=== PATIENT | female | born 1970 | race Two or more races ===

== ENCOUNTER 2024-06-17 18:36 | Inpatient (IN) | payer MEDICAID ==
[~2024-06-17] VITALS: Ht 175.3 cm; Wt 80.7 kg
[2024-06-17 22:59] LABS: CHLORIDE 110 mEq/L (98-107); POTASSIUM 4.2 mEq/L (3.5-5.1); SODIUM 139 mEq/L (136-145)
[2024-06-17 23:00] LABS: CARBON DIOXIDE 24 mEq/L (21-32); DIFFERENTIAL COMMENT 1; HEMATOCRIT. 26.4 % (36.0-48.0); HEMOGLOBIN. 8.3 g/dL (12.0-16.0); MEAN CORPUSCULAR HEMOGLOBIN 24.8 pg (28.0-32.0); MEAN CORPUSCULAR HGB CONC 31.6 g/dL (31.0-37.0); MEAN CORPUSCULAR VOLUME 78.6 fL (81.0-99.0); MEAN PLATELET VOLUME 9.1 fl (7.4-10.4); PLATELET 329 x1000/uL (130-400); RED BLOOD CELL COUNT 3.36 mill/uL (4.2-5.4); RED CELL DISTRIBUTION WIDTH 20.1 % (11.6-14.6); WHITE BLOOD COUNT 10.3 x1000/uL (4.5-11.0)
[2024-06-17 23:05] LABS: CREATININE 0.8 mg/dL (0.6-1.0); GLUCOSE 98 mg/dL (70-105); UREA NITROGEN BLOOD 19 mg/dL (9-23)
[2024-06-17 23:07] LABS: ALANINE AMINOTRANSFERASE 15 IU/L (10-49); ALBUMIN 4.2 g/dL (3.2-4.8); ASPARTATE AMINOTRANSFERASE 23 IU/L (<34)
[2024-06-17 23:08] LABS: BILIRUBIN TOTAL 0.2 mg/dL (0.1-1.0); PROTEIN TOTAL 7.5 g/dL (6.0-8.3)
[2024-06-17 23:22] LABS: ANISOCYTOSIS 1+; HYPOCHROMASIA 1+; MICROCYTOSIS 1+; PLATELET ESTIMATE NORMAL
[2024-06-17] MEDS: KETOROLAC 30MG/ML VIAL IM ONE (23:30)
[2024-06-18] MEDS: SODIUM CHLORIDE 0.9% 500 ML IV ONE (02:39)
[2024-06-18] MEDS: CEFTRIAXONE 1GM/50ML 50 ML IV ONE (02:39)
[2024-06-18] MEDS ORDERED: LORAZEPAM 2MG/ML INJ IV NR (02:45)
[2024-06-18] MEDS: METRONIDAZOLE 500 MG PREMIX 100 ML IV ONE (03:08)
[2024-06-18] MEDS ORDERED: ACETAMINOPHEN 650MG SUPP PR PRN (03:30)
[2024-06-18 04:34] VITALS: BP 146/77; PULSE 74; RESP 18; TEMP 35.8064
[2024-06-18] MEDS ORDERED: CLONIDINE 0.1MG TABLET PO PRN (06:30)
[2024-06-18] MEDS ORDERED: ONDANSETRON HCL 4MG TABLET PO PRN (06:30)
[2024-06-18 08:00] VITALS: BP 121/56; PULSE 72; RESP 20; TEMP 36.89184; O2SAT 98
[2024-06-18] MEDS ORDERED: KETOROLAC 15MG/ML VIAL IV PRN ×2 (08:30→08:45)
[2024-06-18] MEDS ORDERED: GUAIFENESIN 200MG 200 MG TABLET PO PRN (08:45)
[2024-06-18] MEDS ORDERED: IPRATROPIUM/ALBUTEROL 0.5-3(2.5)MG/3ML NEB HHN PRN (08:45)
[2024-06-18] MEDS ORDERED: DEXTROSE 50% WATER 50ML SYRINGE IV PRN (08:45)
[2024-06-18 09:26] LABS: IRON 21 ug/dL (50-170)
[2024-06-18 09:28] LABS: PHOSPHORUS 4.1 mg/dL (2.5-4.9)
[2024-06-18 09:29] LABS: TOTAL IRON BINDING CAPACITY 365 ug/dl (250-425)
[2024-06-18 09:33] LABS: FERRITIN 8 ng/mL (10-291)
[2024-06-18 09:34] LABS: VITAMIN B12 SERUM 378 pg/mL (211-911)
[2024-06-18 12:00] VITALS: BP 131/54; PULSE 77; RESP 20; TEMP 37.11408; O2SAT 99
[2024-06-18] MEDS: BLOOD SUGAR DIAGNOSTIC STRIP TEST SCH (12:20)
[2024-06-18 16:00] VITALS: BP 126/57; PULSE 74; RESP 20; TEMP 36.72516; O2SAT 99
[2024-06-18 20:00] VITALS: BP 143/67; PULSE 90; RESP 20; TEMP 35.72508; O2SAT 96
[2024-06-18] MEDS: IRON SUCROSE COMPLEX 100 MG/5 ML ML IV SCH (20:00)
[2024-06-18] MEDS: PANTOPRAZOLE SODIUM 40 MG/VIAL IV SCH (21:00)
[2024-06-18 22:12] LABS: INR 0.9; PARTIAL THROMBOPLASTIN TIME 26.6 sec (23.4-31.0); PROTHROMBIN TIME 10.6 sec (9.6-11.0)
[2024-06-18] MEDS: MAGNESIUM 2 G PREMIX 50 ML IV NR (22:25)
[2024-06-19] VITALS: BP 118/63; PULSE 76; RESP 20; TEMP 36.78072; O2SAT 95
[2024-06-19 04:00] VITALS: BP 103/58; PULSE 65; RESP 20; TEMP 36.6696; O2SAT 98
[2024-06-19 06:49] LABS: CARBON DIOXIDE 24 mEq/L (21-32); CHLORIDE 109 mEq/L (98-107); POTASSIUM 4.2 mEq/L (3.5-5.1); SODIUM 140 mEq/L (136-145)
[2024-06-19 06:50] LABS: CALCIUM 8.6 mg/dL (8.7-10.4)
[2024-06-19 06:55] LABS: CREATININE 0.7 mg/dL (0.6-1.0); GLUCOSE 83 mg/dL (70-105); TRIGLYCERIDE 155 mg/dL (0-150)
[2024-06-19 06:56] LABS: LDL CHOLESTEROL 76 mg/dL (5-100); T4 FREE 0.61 ng/dL (0.89-1.76); UREA NITROGEN BLOOD 11 mg/dL (9-23)
[2024-06-19 06:57] LABS: CHOLESTEROL 139 mg/dL (<200); HDL CHOLESTEROL 36 mg/dL (>65); THYROID STIMULATING HORMONE 0.95 uIU/mL (0.55-4.78)
[2024-06-19 07:40] LABS: BASOPHILS % 1.7 % (0.0-2.0); DIFFERENTIAL COMMENT 0; EOSINOPHILS % 13.5 % (0.0-5.0); HEMATOCRIT. 25.3 % (36.0-48.0); HEMOGLOBIN. 8.1 g/dL (12.0-16.0); LYMPHOCYTES % 21.1 % (20.0-50.0); MEAN CORPUSCULAR HEMOGLOBIN 24.8 pg (28.0-32.0); MEAN CORPUSCULAR VOLUME 77.4 fL (81.0-99.0); MEAN PLATELET VOLUME 9.1 fl (7.4-10.4); MONOCYTES % 7.7 % (2.0-8.0); PLATELET 335 x1000/uL (130-400); RED BLOOD CELL COUNT 3.27 mill/uL (4.2-5.4); RED CELL DISTRIBUTION WIDTH 20.2 % (11.6-14.6); WHITE BLOOD COUNT 6.9 x1000/uL (4.5-11.0)
[2024-06-19 08:00] VITALS: BP 139/60; PULSE 81; RESP 18; TEMP 37.00296; O2SAT 100
[2024-06-19 09:31] LABS: ALANINE AMINOTRANSFERASE 12 IU/L (10-49); ALBUMIN 3.8 g/dL (3.2-4.8); ASPARTATE AMINOTRANSFERASE 21 IU/L (<34); BILIRUBIN DIRECT 0.1 mg/dL (<=3.0)
[2024-06-19 09:32] LABS: BILIRUBIN TOTAL 0.3 mg/dL (0.1-1.0); PROTEIN TOTAL 6.7 g/dL (6.0-8.3)
[2024-06-19 12:00] VITALS: BP 148/88; PULSE 80; RESP 18; TEMP 37.39188; O2SAT 100
[2024-06-19] MEDS: ENOXAPARIN 40MG/0.4ML SYR SUBCUT SCH (12:42)
[2024-06-19 16:00] VITALS: BP 111/58; PULSE 73; RESP 18; TEMP 37.16964; O2SAT 100
[2024-06-19 20:00] VITALS: BP 117/56; PULSE 79; RESP 20; TEMP 36.28068; O2SAT 95
[2024-06-20] VITALS: BP 120/60; PULSE 98; RESP 17; TEMP 36.22512; O2SAT 98
[2024-06-20 04:00] VITALS: BP 115/70; PULSE 78; RESP 18; TEMP 36.22512; O2SAT 99
[2024-06-20 08:00] VITALS: BP 126/64; PULSE 71; RESP 18; TEMP 37.33632; O2SAT 100
[2024-06-20 12:00] VITALS: BP 117/62; PULSE 82; RESP 18; TEMP 36.89184; O2SAT 100
[2024-06-20 14:57] VITALS: BP 125/75; PULSE 78; TEMP 98; O2SAT 98
[2024-06-20 16:00] VITALS: BP 115/64; PULSE 80; RESP 18; TEMP 37.16964; O2SAT 100
== END 2024-06-20 17:30 | disposition home or self-care (01) ==
LOC: ER 18:36 → EDBEDREQTM 06-18 01:49 → 5WST 06-18 03:50 → 6EST 06-18 03:53
PROVIDERS: ADMIT Hospitalist; ATTEND Hospitalist
DX: K80.01 Calculus of gallbladder with acute cholecystitis with obstruction (principal); J18.9 Pneumonia, unspecified organism; D50.9 Iron deficiency anemia, unspecified; Z20.822 Contact with and (suspected) exposure to COVID-19; J06.9 Acute upper respiratory infection, unspecified; Z59.00 Homelessness unspecified; R03.0 Elevated blood-pressure reading, without diagnosis of hypertension; Z85.528 Personal history of other malignant neoplasm of kidney; J30.2 Other seasonal allergic rhinitis
CPT/HCPCS: 36415; 71045; 76705; 78227; 80048; 80053; 80061; 80076; 82607; 82728; 82746; 82962; 83540; 83550; 83735; 84100; 84439; 84443; 85025; 87426; A9537; J0696; J1650; J1885; J2470; J3475; J3490; J7040

== ENCOUNTER 2024-06-25 09:15 | Emergency (ER) | payer MEDICAID ==
[~2024-06-25] VITALS: Ht 162.6 cm; Wt 81.0 kg
[2024-06-25 09:52] VITALS: O2SAT 97
[2024-06-25 11:27] LABS: CHLORIDE 112 mEq/L (98-107); POTASSIUM 4.3 mEq/L (3.5-5.1); SODIUM 140 mEq/L (136-145)
[2024-06-25 11:28] LABS: CALCIUM 8.9 mg/dL (8.7-10.4); CARBON DIOXIDE 23 mEq/L (21-32)
[2024-06-25 11:33] LABS: CREATININE 0.7 mg/dL (0.6-1.0); GLUCOSE 81 mg/dL (70-105); UREA NITROGEN BLOOD 18 mg/dL (9-23)
[2024-06-25 11:35] LABS: ALANINE AMINOTRANSFERASE 13 IU/L (10-49); ALBUMIN 4.1 g/dL (3.2-4.8); ASPARTATE AMINOTRANSFERASE 20 IU/L (<34); BILIRUBIN TOTAL 0.2 mg/dL (0.1-1.0); PROTEIN TOTAL 7.4 g/dL (6.0-8.3)
[2024-06-25 11:43] LABS: HEMATOCRIT 28.2 % (36.0-48.0); HEMOGLOBIN 8.8 g/dL (12.0-16.0); MEAN CORPUSCULAR HEMOGLOBIN 25.5 pg (28.0-32.0); MEAN CORPUSCULAR HGB CONC 31.4 g/dL (31.0-37.0); MEAN CORPUSCULAR VOLUME 81.2 fL (81.0-99.0); RED BLOOD CELL COUNT 3.47 mill/uL (4.2-5.4); WHITE BLOOD COUNT 8.5 x1000/uL (4.5-11.0)
[2024-06-25 12:14] LABS: PLATELET 391 x1000/uL (130-400)
[2024-06-25 13:44] VITALS: BP 141/69; PULSE 64; RESP 18; TEMP 36.94740; O2SAT 97
== END 2024-06-25 17:54 | disposition home or self-care (01) ==
LOC: ER 09:15
DX: M19.072 Primary osteoarthritis, left ankle and foot (principal); M19.071 Primary osteoarthritis, right ankle and foot; M79.641 Pain in right hand
CPT/HCPCS: 36415; 73130; 73630; 80053; 85027; 99284

== ENCOUNTER 2024-06-25 19:42 | Emergency (ER) | payer MEDICAID ==
[~2024-06-25] VITALS: Ht 162.6 cm; Wt 81.8 kg
[2024-06-25 19:52] VITALS: O2SAT 99
[2024-06-25 20:21] VITALS: BP 132/51; PULSE 96; RESP 15; TEMP 98.6; O2SAT 98
== END 2024-06-25 22:59 | disposition home or self-care (01) ==
LOC: ER 19:42
DX: R05.9 Cough, unspecified (principal); R09.81 Nasal congestion; Z85.9 Personal history of malignant neoplasm, unspecified
CPT/HCPCS: 71045; 99283